=== PATIENT | female | born 1960 | race Caucasian/White ===

== ENCOUNTER 2017-12-23 09:31 | Day surgery (SDC) | payer OTHER ==
[~2017-12-23] VITALS: Ht 162.6 cm; Wt 96.2 kg
[~2017-12-23 09:31] MED LIST: ALEVE220 MG PO; FEXPSEER PO; HYDACE5 PO; Hair, Skin & N1 EACH PO; IBUP800 PO; NAPR220 PO; OMEP10ER; PROM25 PO
[2017-12-23] MEDS ORDERED: TYLENOL325 MG PO (10:17)
[2017-12-23] MEDS ORDERED: NYSTRITC TOP (10:20)
== END 2017-12-23 16:35 | disposition home or self-care (01) ==
LOC: ORSCMMR 09:31 → ORD 11:30 → ORSCMMR 11:30
DX: D27.1 Benign neoplasm of left ovary (principal); N83.8 Other noninflammatory disorders of ovary, fallopian tube and broad ligament; Z87.891 Personal history of nicotine dependence; E66.01 Morbid (severe) obesity due to excess calories; Z68.36 Body mass index [BMI] 36.0-36.9, adult
CPT/HCPCS: 88302; 88305; J0171; J1100; J1885; J2250; J2370; J2405; J2550; J2710; J3010; J7030; J7120

== ENCOUNTER 2017-12-27 08:20 | Day surgery (SDC) | payer OTHER ==
[~2017-12-27 08:20] MED LIST changes: +NYSTRITC TOP; +TYLENOL325 MG PO
[2018-01-01 15:08] LABS: Performing Lab SYMBIODX; Test Name TISSUE BLOCK
== END 2017-12-27 22:47 | disposition home or self-care (01) ==
LOC: MOI US 08:20
PROVIDERS: Nurse Practitioner Family
PROC: 0HBT3ZX Excision of Right Breast, Percutaneous Approach, Diagnostic (ICD-10-PCS; principal; 2017-12-27)
DX: C50.911 Malignant neoplasm of unspecified site of right female breast (principal)
CPT/HCPCS: 19083; 77065; 88305; 88341; 88342; 88360; A4648

== ENCOUNTER 2018-01-24 07:32 | Day surgery (SDC) | payer OTHER | END 2018-01-24 22:48 | LOC: MOI MAM 07:32 | PROC: BH00ZZZ Plain Radiography of Right Breast (ICD-10-PCS; principal; 2018-01-24) | DX: C50.211 Malignant neoplasm of upper-inner quadrant of right female breast (principal) | CPT/HCPCS: 19285; 77065 ==

== ENCOUNTER 2018-01-30 07:54 | Day surgery (SDC) | payer OTHER ==
[~2018-01-30] VITALS: Ht 162.6 cm; Wt 93.0 kg
[2018-02-07 15:14] LABS: Performing Lab SYMBIODX; Test Name TISSUE BLOCK
== END 2018-01-30 13:44 | disposition home or self-care (01) ==
LOC: NM 07:54 → ORSCMMR 07:54 → NM 07:55 → ORSCMMR 07:55 → NM 09:00 → ORSCMMR 13:44
PROVIDERS: Surgery
PROC: 0HTT0ZZ Resection of Right Breast, Open Approach (ICD-10-PCS; principal; 2018-01-30 10:30)
PROC: 07B50ZX Excision of Right Axillary Lymphatic, Open Approach, Diagnostic (ICD-10-PCS; principal; 2018-01-30 10:30)
DX: C50.211 Malignant neoplasm of upper-inner quadrant of right female breast (principal); D36.0 Benign neoplasm of lymph nodes; Z87.891 Personal history of nicotine dependence; E66.01 Morbid (severe) obesity due to excess calories; Z68.35 Body mass index [BMI] 35.0-35.9, adult
CPT/HCPCS: 38792; 76098; 88307; 88342; A9520; J0690; J2250; J3010; J7120; Q9968

== ENCOUNTER → 2018-03-18 | Outpatient (CLI) | payer OTHER ==
[~2018-03-18] MED LIST changes: +CALCIUM + D3 E1 EACH PO; +Vitamin B Comple1 EA PO
== END ==
LOC: LAB SHORT 18:25 → LAB 18:25
DX: N39.0 Urinary tract infection, site not specified (principal)
CPT/HCPCS: 87086

== ENCOUNTER → 2018-03-26 | Outpatient (CLI) | payer OTHER | LOC: LAB 17:23 → LAB SHORT 17:23 | PROVIDERS: Nurse Practitioner Family | DX: R30.0 Dysuria (principal) | CPT/HCPCS: G0145 ==

== ENCOUNTER 2018-03-29 00:37 | Day surgery (SDC) | payer OTHER | END 2018-03-29 17:05 | disposition home or self-care (01) | LOC: ATC 00:37 | DX: D70.1 Agranulocytosis secondary to cancer chemotherapy (principal); T45.1X5A Adverse effect of antineoplastic and immunosuppressive drugs, initial encounter; C50.211 Malignant neoplasm of upper-inner quadrant of right female breast; C77.3 Secondary and unspecified malignant neoplasm of axilla and upper limb lymph nodes; Z17.0 Estrogen receptor positive status [ER+]; Z87.891 Personal history of nicotine dependence; Z79.899 Other long term (current) drug therapy; Z91.040 Latex allergy status | CPT/HCPCS: 96372; J1447 ==

== ENCOUNTER 2018-04-05 00:13 | Day surgery (SDC) | payer OTHER | END 2018-04-05 09:54 | disposition home or self-care (01) | LOC: ATC 00:13 | DX: C50.211 Malignant neoplasm of upper-inner quadrant of right female breast (principal); Z17.0 Estrogen receptor positive status [ER+]; D70.2 Other drug-induced agranulocytosis | CPT/HCPCS: 96372; J1447 ==

== ENCOUNTER 2018-04-19 00:19 | Day surgery (SDC) | payer OTHER ==
[2018-04-20] MEDS ORDERED: ACET325 PO (11:02)
== END 2018-04-19 11:10 | disposition home or self-care (01) ==
LOC: ATC 00:19
DX: C50.211 Malignant neoplasm of upper-inner quadrant of right female breast (principal); Z17.0 Estrogen receptor positive status [ER+]; D70.2 Other drug-induced agranulocytosis
CPT/HCPCS: 96372; J1447

== ENCOUNTER 2018-04-20 00:10 | Day surgery (SDC) | payer OTHER ==
[2018-04-20] MEDS ORDERED: ACET325 PO (11:02)
== END 2018-04-20 10:59 | disposition home or self-care (01) ==
LOC: ATC 00:10
DX: C50.211 Malignant neoplasm of upper-inner quadrant of right female breast (principal); D70.2 Other drug-induced agranulocytosis; Z17.0 Estrogen receptor positive status [ER+]
CPT/HCPCS: 96372; J1447

== ENCOUNTER 2018-05-03 09:12 | Day surgery (SDC) | payer OTHER ==
[~2018-05-03 09:12] MED LIST changes: +ACET325 PO
== END 2018-05-03 09:24 | disposition home or self-care (01) ==
LOC: ATC 09:12
DX: C50.211 Malignant neoplasm of upper-inner quadrant of right female breast (principal); Z17.0 Estrogen receptor positive status [ER+]; D70.2 Other drug-induced agranulocytosis; Z87.891 Personal history of nicotine dependence; I10 Essential (primary) hypertension; E66.9 Obesity, unspecified
CPT/HCPCS: 96372; J1447

== ENCOUNTER → 2018-07-31 | Outpatient (CLI) | payer OTHER | LOC: LAB 16:45 → LAB SHORT 16:45 | DX: R30.0 Dysuria (principal) | CPT/HCPCS: 87077; 87086; 87186 ==

== ENCOUNTER → 2018-08-18 | Outpatient (CLI) | payer OTHER ==
[2018-08-18 11:32] LABS: Source, Urine Clean Catch
[2018-08-18 18:09] LABS: Bilirubin, Urine Neg (Neg); Blood, Urine Neg (Neg); Glucose Qualitative, Urine Neg (Neg); Ketones, Urine Neg (Neg); Leukocyte Esterase, Urine Neg (Neg); Nitrite, Urine Neg (Neg); Protein, Urine Neg (Neg); Urobilinogen, Urine NORM (Normal)
[2018-08-18 18:19] LABS: Appearance, Urine Clear (Clear); Color, Urine Yellow (P-Yellow)
== END | disposition home or self-care (01) ==
LOC: LAB 11:30 → LAB SHORT 11:30
PROVIDERS: Obstetrics & Gynecology
DX: R39.9 Unspecified symptoms and signs involving the genitourinary system (principal)
CPT/HCPCS: 81003

== ENCOUNTER 2018-12-20 19:25 | Inpatient (IN) | payer OTHER ==
[~2018-12-20] VITALS: Ht 162.6 cm; Wt 200.1 kg
[2018-12-20 20:01] LABS: BASOPHILS ABSOLUTE AUTO 0.07 K/mm3 (0.00-0.23); BASOPHILS PERCENT AUTO 0 % (0-2); EOSINOPHILS PERCENT AUTO 0 % (0-6); Hematocrit 38.8 % (33.0-51.0); Hemoglobin 12.7 g/dL (11.5-16.0); IMMATURE GRAN ABSOLUTE AUTO 0.17 K/mm3 (0.00-0.10); IMMATURE GRAN PERCENT AUTO 1 % (0-1); LYMPHOCYTES ABSOLUTE AUTO 0.76 K/mm3 (0.84-5.20); LYMPHOCYTES PERCENT AUTO 3 % (21-46); MONOCYTES ABSOLUTE AUTO 1.41 K/mm3 (0.16-1.47); MONOCYTES PERCENT AUTO 5 % (4-13); Mean Corpuscular HGB 30.1 pg (26.0-34.0); Mean Corpuscular HGB Conc 32.7 g/dL (31.5-36.5); Mean Corpuscular Volume 92 fL (80-100); NEUTROPHILS ABSOLUTE AUTO 25.38 K/mm3 (1.96-9.15); NEUTROPHILS PERCENT AUTO 91 % (41-73); Platelet Count 253 K/mm3 (150-400); RDW Coefficient Variation 13.3 % (11.7-14.2); Red Blood Cell Count 4.22 M/mm3 (3.80-5.20); White Blood Cell Count 27.79 K/mm3 (4.00-11.30)
[2018-12-20 20:27] LABS: Alanine Aminotransfer (ALT/SGP 35 U/L (12-78); Albumin, Blood 3.4 g/dL (3.4-5.0); Albumin/Globulin Ratio 0.8 (0.8-1.8); Alk Phos 135 U/L (50-136); Anion Gap 8 mmol/L (6-16); Aspartate Aminotrans (AST/SGOT 15 U/L (12-37); Blood Urea Nitrogen 9 mg/dL (8-24); CO2, Blood 26 mmol/L (21-32); Calcium, Blood 9.1 mg/dL (8.5-10.1); Chloride, Blood 100 mmol/L (98-108); Creatinine, Blood 0.82 mg/dL (0.40-1.00); Globulin, Blood 4.2 g/dL (2.2-4.0); Glomerular Filtration Rate >60 (60-); Glucose, Blood 162 mg/dL (70-99); Potassium, Blood 3.3 mmol/L (3.5-5.5); Sodium, Blood 134 mmol/L (136-145); Total Protein, Blood 7.6 g/dL (6.4-8.2)
[2018-12-20] MEDS ORDERED: HORMONE BLOCKER (21:54)
[2018-12-20] MEDS ORDERED: LETR2.5 PO (21:58)
--- NOTE | 2018-12-21 04:47 | NUR ---
SHIFT SUMMARY PT HAD NO COMPLAINTS OR ISSUES NOTED. PT HAS BEEN SLEEPING SINCE ARRIVING TO FLOOR. PT IS CURRENTLY SLEEPING AND BREATHING EASY. CALL LIGHT IN REACH.
[2018-12-21 04:57] LABS: BASOPHILS ABSOLUTE AUTO 0.04 K/mm3 (0.00-0.23); BASOPHILS PERCENT AUTO 0 % (0-2); EOSINOPHILS ABSOLUTE AUTO 0.02 K/mm3 (0.00-0.68); EOSINOPHILS PERCENT AUTO 0 % (0-6); Hematocrit 34.9 % (33.0-51.0); Hemoglobin 11.2 g/dL (11.5-16.0); IMMATURE GRAN ABSOLUTE AUTO 0.17 K/mm3 (0.00-0.10); IMMATURE GRAN PERCENT AUTO 1 % (0-1); LYMPHOCYTES ABSOLUTE AUTO 1.08 K/mm3 (0.84-5.20); LYMPHOCYTES PERCENT AUTO 5 % (21-46); MONOCYTES ABSOLUTE AUTO 1.21 K/mm3 (0.16-1.47); MONOCYTES PERCENT AUTO 5 % (4-13); Mean Corpuscular HGB 30.5 pg (26.0-34.0); Mean Corpuscular HGB Conc 32.1 g/dL (31.5-36.5); Mean Platelet Volume 9.1 fL (9.1-12.4); NEUTROPHILS ABSOLUTE AUTO 19.72 K/mm3 (1.96-9.15); NEUTROPHILS PERCENT AUTO 89 % (41-73); Platelet Count 227 K/mm3 (150-400); RDW Coefficient Variation 13.3 % (11.7-14.2); Red Blood Cell Count 3.67 M/mm3 (3.80-5.20); White Blood Cell Count 22.24 K/mm3 (4.00-11.30)
[2018-12-21 05:01] LABS: Mean Corpuscular Volume 95 fL (80-100)
[2018-12-21 05:40] LABS: Anion Gap 4 mmol/L (6-16); Blood Urea Nitrogen 8 mg/dL (8-24); Bun/Creatinine Ratio 11.9 (12.0-20.0); CO2, Blood 27 mmol/L (21-32); Calcium, Blood 8.1 mg/dL (8.5-10.1); Chloride, Blood 107 mmol/L (98-108); Creatinine, Blood 0.67 mg/dL (0.40-1.00); Glomerular Filtration Rate >60 (60-); Glucose, Blood 112 mg/dL (70-99); Potassium, Blood 4.2 mmol/L (3.5-5.5); Sodium, Blood 138 mmol/L (136-145)
--- NOTE | 2018-12-21 18:46 | NUR ---
SHIFT SUMMARY PATIENT A&O, INDEPENDENT IN THE ROOM. MEDICATED X1 FOR A HEADACHE AND X1 FOR NAUSEA THIS SHIFT. DENIES SOB. ON RA. FLUIDS D/C THIS SHIFT. NO ACUTE CHANGES.
--- NOTE | 2018-12-22 04:06 | NUR ---
SHIFT SUMMARY PT HAD NO COMPLAINTS NOTED. PT DID HAVE A TEMP AND WAS TX WITH TYLENOL AND TEMP REDUCED. PT HAS SLEPT T/O SHIFT. PT CURRENTLY SLEEPING AND BREATHING EASY. CALL LIGHT IN REACH.
[2018-12-22 04:54] LABS: BASOPHILS ABSOLUTE AUTO 0.04 K/mm3 (0.00-0.23); BASOPHILS PERCENT AUTO 0 % (0-2); EOSINOPHILS ABSOLUTE AUTO 0.09 K/mm3 (0.00-0.68); EOSINOPHILS PERCENT AUTO 1 % (0-6); Hematocrit 35.1 % (33.0-51.0); Hemoglobin 11.2 g/dL (11.5-16.0); IMMATURE GRAN ABSOLUTE AUTO 0.05 K/mm3 (0.00-0.10); IMMATURE GRAN PERCENT AUTO 0 % (0-1); LYMPHOCYTES ABSOLUTE AUTO 1.44 K/mm3 (0.84-5.20); LYMPHOCYTES PERCENT AUTO 12 % (21-46); MONOCYTES ABSOLUTE AUTO 0.74 K/mm3 (0.16-1.47); MONOCYTES PERCENT AUTO 6 % (4-13); Mean Corpuscular HGB 29.9 pg (26.0-34.0); Mean Corpuscular HGB Conc 31.9 g/dL (31.5-36.5); Mean Corpuscular Volume 94 fL (80-100); Mean Platelet Volume 9.4 fL (9.1-12.4); NEUTROPHILS ABSOLUTE AUTO 10.15 K/mm3 (1.96-9.15); NEUTROPHILS PERCENT AUTO 81 % (41-73); Platelet Count 265 K/mm3 (150-400); RDW Coefficient Variation 13.3 % (11.7-14.2); Red Blood Cell Count 3.75 M/mm3 (3.80-5.20); White Blood Cell Count 12.51 K/mm3 (4.00-11.30)
[2018-12-22] MEDS ORDERED: Florastor250 MG PO (11:29)
[2018-12-22] MEDS ORDERED: CEFP200 PO (11:30)
[2018-12-22] MEDS ORDERED: ALBU90OI6 INH (11:30)
[2018-12-22] MEDS ORDERED: AZIT500 PO (11:30)
--- NOTE | 2018-12-22 12:04 | NUR ---
DISCHARGE SUMMARY PT A&OX4. CALM AND COOPERATIVE WITH CARE. PT RESTING IN BED DURING SHIFT. UP IND IN ROOM. PT DENIES PAIN, SOB AND N/V DURING SHIFT. PT RECEIVING IV ANTIBITOICS. PT ON RA, REPORTS NONPRODUCTIVE COUGH. VSS. AFIBRILE. NO OTHER ACUTE CHANGES NOTED DURING SHIFT. PT EDUCATED ON DISCHARGE INSTRUCTIONS, MEDICATIONS AND FOLLOW UP APPOINTMENTS. [facility] PER PT REQUEST. PT LEFT ROOM VIA WHEELCHAIR AT 1200. PT STABLE UPON DISCHARGE.
== END 2018-12-22 12:01 | disposition home or self-care (01) | DRG 871 ==
LOC: ER 19:25 → MEDS 22:01 → ENPENDDIS 12-22 10:09 → MEDS 12-22 12:01
PROVIDERS: Internal Medicine Endocrinology, Diabetes & Metabolism; Physician Assistant; ADMIT Internal Medicine
DX: A41.9 Sepsis, unspecified organism (principal); J18.1 Lobar pneumonia, unspecified organism; E87.1 Hypo-osmolality and hyponatremia; Z85.3 Personal history of malignant neoplasm of breast; E87.6 Hypokalemia; Z87.891 Personal history of nicotine dependence
CPT/HCPCS: 36415; 71046; 71260; 80048; 80053; 83036; 83605; 85025; 87040; 93005; 93010; 96365-59; 96367; 96375-59; 99285-25; J0456; J0696; J0780; J1650; J2405; J3480; J7030; J7040; J7050; Q9967

== ENCOUNTER → 2019-03-20 | Outpatient (CLI) | payer OTHER ==
[~2019-03-20] MED LIST changes: +ALBU90OI6 INH; +AZIT500 PO; +CEFP200 PO; +Florastor250 MG PO; +HORMONE BLOCKER; +LETR2.5 PO
[2019-03-20 12:49] LABS: BASOPHILS ABSOLUTE AUTO 0.04 K/mm3 (0.00-0.23); BASOPHILS PERCENT AUTO 1 % (0-2); EOSINOPHILS ABSOLUTE AUTO 0.11 K/mm3 (0.00-0.68); EOSINOPHILS PERCENT AUTO 2 % (0-6); Hematocrit 40.8 % (33.0-51.0); Hemoglobin 13.5 g/dL (11.5-16.0); IMMATURE GRAN ABSOLUTE AUTO 0.01 K/mm3 (0.00-0.10); IMMATURE GRAN PERCENT AUTO 0 % (0-1); LYMPHOCYTES ABSOLUTE AUTO 1.51 K/mm3 (0.84-5.20); LYMPHOCYTES PERCENT AUTO 27 % (21-46); MONOCYTES ABSOLUTE AUTO 0.28 K/mm3 (0.16-1.47); MONOCYTES PERCENT AUTO 5 % (4-13); Mean Corpuscular HGB 30.5 pg (26.0-34.0); Mean Corpuscular HGB Conc 33.1 g/dL (31.5-36.5); Mean Corpuscular Volume 92 fL (80-100); Mean Platelet Volume 9.1 fL (9.1-12.4); NEUTROPHILS ABSOLUTE AUTO 3.58 K/mm3 (1.96-9.15); NEUTROPHILS PERCENT AUTO 65 % (41-73); Platelet Count 389 K/mm3 (150-400); RDW Standard Deviation 43.8 fL (35.1-46.3); Red Blood Cell Count 4.42 M/mm3 (3.80-5.20); White Blood Cell Count 5.53 K/mm3 (4.00-11.30)
[2019-03-20 13:35] LABS: Alanine Aminotransfer (ALT/SGP 26 U/L (12-78); Albumin, Blood 3.9 g/dL (3.4-5.0); Albumin/Globulin Ratio 1.1 (0.8-1.8); Alk Phos 135 U/L (50-136); Anion Gap 8 mmol/L (6-16); Aspartate Aminotrans (AST/SGOT 20 U/L (12-37); Bilirubin, Total 0.3 mg/dL (0.1-1.0); Blood Urea Nitrogen 8 mg/dL (8-24); Bun/Creatinine Ratio 13.9 (12.0-20.0); CO2, Blood 28 mmol/L (21-32); Chloride, Blood 106 mmol/L (98-108); Creatinine, Blood 0.58 mg/dL (0.40-1.00); Globulin, Blood 3.7 g/dL (2.2-4.0); Glomerular Filtration Rate >60 (60-); Glucose, Blood 89 mg/dL (70-99); Potassium, Blood 3.9 mmol/L (3.5-5.5); Sodium, Blood 142 mmol/L (136-145); Total Protein, Blood 7.6 g/dL (6.4-8.2)
== END | disposition home or self-care (01) ==
LOC: LAB EV 12:41 → LAB SHORT 12:41
PROVIDERS: General Practice
DX: R11.0 Nausea (principal)
CPT/HCPCS: 80053; 83690; 85025

== ENCOUNTER → 2021-11-24 | Outpatient (CLI) | payer OTHER | END | disposition home or self-care (01) | LOC: LAB SHORT 11:45 → LAB 11:45 | DX: N39.0 Urinary tract infection, site not specified (principal) | CPT/HCPCS: 87077; 87086; 87186 ==

== ENCOUNTER → 2022-08-17 | Outpatient (CLI) | payer OTHER ==
[2022-08-27 14:08] LABS: HPV 16 Negative (Negative); HPV 18 Negative (Negative); HPV OTHER HR TYPES Negative (Negative)
== END ==
LOC: LAB SHORT 14:34 → LAB 14:34
PROVIDERS: Physician Assistant
DX: Z01.419 Encounter for gynecological examination (general) (routine) without abnormal findings (principal)
CPT/HCPCS: 87624; G0145

== ENCOUNTER 2025-01-04 08:10 | Day surgery (SDC) | payer OTHER ==
[~2025-01-04] VITALS: Ht 162.6 cm; Wt 98.4 kg
[2025-01-04] VITALS (20 sets, daily range): BP systolic 100–151; BP diastolic 66–96
[~2025-01-04 08:10] MED LIST changes: +ANAS1 PO; +EUTHYROX50 MCG PO; +HYDROCORTISON28.4 G4 TOP; +MULTI-VITAMIN1 EAC2 PO; +OMEPRAZOLE MAGN20 MG PO
[2025-01-04] MEDS ORDERED: Dexamethasone Sod Phos 10 MG/ML 1ML VIAL ONE (08:57)
[2025-01-04] MEDS ORDERED: FentaNYL Citrate 50 MCG/ML 2 ML Injection ONE ×3 (08:57→13:31)
[2025-01-04] MEDS ORDERED: Ondansetron HCl 2 MG / ML 2ML Vial ONE (08:57)
[2025-01-04] MEDS ORDERED: propofoL 40 ML IV ONE (08:57)
[2025-01-04] MEDS ORDERED: Lidocaine HCl 1% 5 ML SYR INJ ONE (09:05)
[2025-01-04] MEDS ORDERED: Citric Acid/Sodium Citrate 30 ML BTL PO ONE (09:05)
[2025-01-04] MEDS ORDERED: Midazolam HCl 1MG / ML 2ML Vial IV ONE (09:05)
[2025-01-04] MEDS ORDERED: Lactated Ringer's 1,000 ML IV SCH (09:05)
[2025-01-04] MEDS ORDERED: AZITHROMYCIN250 MG PO (09:06)
[2025-01-04] MEDS ORDERED: CeFAZolin Sodium 2,000 MG in NS 100 ML IV SCH (09:15)
[2025-01-04] MEDS ORDERED: Albuterol 2.5 MG/3 ML VIAL INH ONE (09:50)
[2025-01-04] MEDS ORDERED: Bupivacaine 0.5% HCl 5 MG/ML 30MLVIAL ONE (09:53)
[2025-01-04] MEDS ORDERED: Methylene Blue 1% 100 MG/10 ML VIAL ONE (09:53)
[2025-01-04] MEDS ORDERED: Rocuronium Bromide 10 MG/ML 5ML Injection IV ONE ×2 (10:00→12:36)
--- NOTE | 2025-01-04 10:13 | NUR ---
Ambulatory in Day Surgery. History, Chart, Medications and Allergies reviewed before start of procedure. Lungs clear T/O to Auscultation. Patient confirms NPO status and agrees with scheduled surgery. Pre-Op teaching done. Pt verbalizes understanding. Patient States Post-Procedure ride home has been arranged. PT BELONGINGS PLACED UNDERNEATH GURNEY FOR SAFEKEEPING. PT GLASSES TAKEN TO PACU FOR SAFEKEEPING.
[2025-01-04] MEDS ORDERED: FentaNYL Citrate 50 MCG/ML 2 ML Injection IV PRN ×3 (10:35→10:40)
[2025-01-04] MEDS ORDERED: Metoclopramide HCl 5MG / ML 2ML Vial IV PRN (10:35)
[2025-01-04] MEDS ORDERED: Phenylephrine HCl 100 MCG/ML-NS 10MLSYR (1MG/10ML) ONE (10:39)
[2025-01-04] MEDS ORDERED: Atropine Sulfate 0.1 MG/ML 10ML SYR IV PRN (10:40)
[2025-01-04] MEDS ORDERED: Ondansetron HCl 2 MG / ML 2ML Vial IV PRN ×2 (10:40→15:30)
[2025-01-04] MEDS ORDERED: Albuterol 2.5 MG/3 ML VIAL INH PRN (10:40)
[2025-01-04] MEDS ORDERED: Sugammadex Sodium 200 MG/2ML SDV (100 MG/ML) ONE (13:32)
[2025-01-04] MEDS ORDERED: Acetaminophen 325 MG TABLET PO PRN (15:30)
[2025-01-04] MEDS ORDERED: Cyclobenzaprine HCl 10 MG Tab PO PRN (15:30)
[2025-01-04] MEDS ORDERED: HYDROmorphone HCl/Pf 1MG SYR IV PRN (15:30)
[2025-01-04] MEDS ORDERED: OxyCODONE HCL 5 MG TAB PO PRN (15:30)
[2025-01-04] MEDS ORDERED: Diazepam 2 MG Tab PO PRN (15:35)
--- NOTE | 2025-01-04 19:15 | NUR ---
ASSUMED CARE ASSUMED CARE OF PATIENT, REPORT RECEIVED FROM DAY RN. PT A/OX4 WITH VSS. ABLE TO ARTICULATE NEEDS AND IS PLEASANT/COOPERATIVE WITH CARE. DEVIN IS POD #0 S/P BILATERAL MASTECTOMY, DRESSING INTACT WITH BREAST BINDER IN PLACE. STRONG PULSES AND IS ABLE TO MOVE ALL EXTREM, REPORTS TENDERNESS WITH LEFT ARM. MEDICATED WITH PO TYLENOL PER ORDERS FOR MILD PAIN. BILATERAL MAREN DRAINS NOTED, 10ML OF SANGUINEOUS FLUID REMOVED FROM LEFT SIDE MAREN. DRESSING INFORCED AT INSERTION SITE OF LEFT DRAIN R/T LEAKING AROUND INSERTION SITE- PER DAY RN. IS TOLERATING PO INTAKE, DENIES N/V. SBA TO BATHROOM, SHEN WELL. DENIES CP/PRESSURE, SOB, OR N/T. VOIDED X 1 DURING PREVIOUS SHIFT. IV PATENT AND SL. PT CURRENTLY DANGLING
--- NOTE | 2025-01-04 19:42 | NUR ---
PT ARRIVED TO RM 227 FROM PACU AT 1605. PT ALERT/ORIENTED. SHE DENIED PAIN. PT ORIENTED TO ROOM AND EDUCATED TO USE THE CALL LIGHT. VSS. FAMILY AT BEDSIDE FOR SUPPORT. SOME OOZING PRESENT AROUND L CHEST MAREN SITE, DRESSING REINFORCED.
--- NOTE | 2025-01-04 19:48 | NUR ---
SHIFT SUMMARY PT IS POD#0 FROM BILATERAL MASTECTOMY. PT STATES PAIN IS MANAGED WITHOUT PAIN MEDICATION. L MAREN DRAIN CONTINUES TO HAVE OUTPUT, R DRAIN REMAINS EMPTY. OOZING AROUND SITE HAS SLOWED, NO FURTHER REINFORCING OF THE DRESSING HAS BEEN REQUIRED. REPORT GIVEN TO RAYSA CAREY.
[2025-01-04] MEDS ORDERED: Sennosides 8.6 MG Tab PO SCH (21:00)
[2025-01-05 05:05] VITALS: BP 115/66
--- NOTE | 2025-01-05 06:30 | NUR ---
UPDATE PT UP IN ROOM IND. DENIES NEEDS OR PAIN. DRINKING COFFEE WHILE IN CHAIR AT THIS TIME. CALL LIGHT IN REACH. DECLINES AMBULATION IN HALLWAY. WILL GIVE REPORT TO ONCOMING RN.
[2025-01-05 07:23] VITALS: BP 119/81
[2025-01-05] MEDS ORDERED: OXAYDO5 M1 PO (09:58)
--- NOTE | 2025-01-05 11:25 | NUR ---
PT DISCHARGED HOME WITH HER FRIEND. ALL BELONGINGS SENT WITH PT. EDUCATION PROVIDED, ALL QUESTIONS ANSWERED.
== END 2025-01-05 11:27 | disposition home or self-care (01) ==
LOC: ORSCMMR 08:10 → NM 08:10 → ORSCMMR 08:11 → NM 08:30 → ORSCMMR 15:48 → SURS 15:48 → ORSCMMR 01-05 11:27 → SURS 01-05 11:27 → NM 01-05 11:27
PROVIDERS: Surgery
PROC: 07B50ZX Excision of Right Axillary Lymphatic, Open Approach, Diagnostic (ICD-10-PCS; principal; 2025-01-04 09:30)
PROC: 0HBT0ZZ Excision of Right Breast, Open Approach (ICD-10-PCS; principal; 2025-01-04 09:30)
DX: C50.211 Malignant neoplasm of upper-inner quadrant of right female breast (principal); Z40.01 Encounter for prophylactic removal of breast; Z17.0 Estrogen receptor positive status [ER+]; Z17.21 Progesterone receptor positive status; Z17.32 Human epidermal growth factor receptor 2 negative status; D36.0 Benign neoplasm of lymph nodes; I10 Essential (primary) hypertension; E78.5 Hyperlipidemia, unspecified; G47.33 Obstructive sleep apnea (adult) (pediatric); Z87.891 Personal history of nicotine dependence; E03.2 Hypothyroidism due to medicaments and other exogenous substances; E66.9 Obesity, unspecified; Z68.37 Body mass index [BMI] 37.0-37.9, adult; F41.9 Anxiety disorder, unspecified; Z79.899 Other long term (current) drug therapy
CPT/HCPCS: 38792; 76098; 88304; 88305; 88307; 88342; A9270; A9520; J0690; J1100; J2250; J2371; J2405; J2704; J3010; J7120; Q9968

== ENCOUNTER 2025-03-17 09:36 | Day surgery (SDC) | payer OTHER ==
[~2025-03-17] VITALS: Ht 162.6 cm; Wt 97.1 kg
[~2025-03-17 09:36] MED LIST changes: +AZITHROMYCIN250 MG PO; +OXAYDO5 M1 PO
[2025-03-17] MEDS ORDERED: Lidocaine HCl 2% 10 ML SDA ONE (09:44)
[2025-03-17] MEDS ORDERED: ZYRTEC10 M2 PO (09:58)
[2025-03-17 12:40] VITALS: BP 110/80
== END 2025-03-17 12:35 | disposition home or self-care (01) ==
LOC: ORSCSDS 09:36
PROVIDERS: Internal Medicine Gastroenterology
PROC: 0DBP8ZX Excision of Rectum, Via Natural or Artificial Opening Endoscopic, Diagnostic (ICD-10-PCS; principal; 2025-03-17 11:15)
PROC: 0DBL8ZX Excision of Transverse Colon, Via Natural or Artificial Opening Endoscopic, Diagnostic (ICD-10-PCS; principal; 2025-03-17 11:15)
DX: Z12.11 Encounter for screening for malignant neoplasm of colon (principal); Z86.0102 Personal history of hyperplastic colon polyps; D12.3 Benign neoplasm of transverse colon; K62.1 Rectal polyp; K21.9 Gastro-esophageal reflux disease without esophagitis; G47.33 Obstructive sleep apnea (adult) (pediatric); F41.9 Anxiety disorder, unspecified; E66.9 Obesity, unspecified; Z68.36 Body mass index [BMI] 36.0-36.9, adult; Z87.891 Personal history of nicotine dependence; Z79.899 Other long term (current) drug therapy
CPT/HCPCS: 88305; J2003; J2704; J7120